=== PATIENT | male | born 1995 ===

== ENCOUNTER 2018-11-15 08:13 | Day surgery (SDC) | payer OTHER ==
[2018-11-14 14:43] VITALS: BMI 22.4
[2018-11-15] MEDS ORDERED: Lactated Ringer's 1,000 ML IV ONE (09:36)
--- NOTE | 2018-11-15 09:37 | CP.SDSHP ---
Same Day Surgery H & P - History Proposed Procedure: colonosocpy Pre-Op Diagnosis: colitis - Allergies Allergies: Allergies No Known Allergies Allergy (Verified 11/15/18 08:36) - Physical Exam Vital Signs: Vital Signs 11/15/18 08:37 Temperature 98.4 F Pulse Rate 100 H Respiratory 16 Rate Blood Pressure 144/85 O2 Sat by Pulse 100 Oximetry Mental Status: Alert & Oriented x3 Neuro: WNL Heart: WNL Lungs: WNL GI: WNL - {Optional Preform as Required} Abdomen: WNL - Impression Impression: colitis Pt. Evaluated Today:Candidate for Anesthesia & Procedure: Yes - Date & Time Date: 11/15/18 Time: 09:25 Short Stay Discharge - Short Stay Discharge Admitting Diagnosis/Reason for Visit: DIARRHEA Disposition: HOME/ ROUTINE
[2018-11-15] MEDS ORDERED: Lidocaine Hydrochloride 5 ML INJ ONE (09:42)
[2018-11-15] MEDS ORDERED: Midazolam 2 MG/2 ML VIAL ONE (09:42)
[2018-11-15] MEDS ORDERED: Propofol 10 mg/ml Inj (20 ML) ONE ×2 (09:42→10:04)
[2018-11-15 12:44] VITALS: BP 116/65; PULSE 81; RESP 12; TEMP 98; O2SAT 98
== END 2018-11-15 10:50 | disposition home or self-care (01) ==
LOC: C.ENDO 08:13
PROVIDERS: ATTEND Internal Medicine Gastroenterology
DX: K52.9 Noninfective gastroenteritis and colitis, unspecified (principal)
CPT/HCPCS: 45380; 88305; J2250; J2704; J7120